=== PATIENT | female | born 1995 | race Caucasian/White ===

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

== ENCOUNTER 2018-08-30 08:40 | Emergency (ER) | payer SELFPAY ==
[2018-08-30] MEDS ORDERED: HYDROcodone/Acetaminophen 5/325 mg Tablet ONE (10:23)
[2018-08-30] MEDS ORDERED: Dexamethasone 4 MG TAB ONE (10:24)
[2018-08-30] MEDS ORDERED: Benzonatate 100 MG CAP ONE (10:24)
[2018-08-30] MEDS ORDERED: Azithromycin 250 MG TAB ONE (10:24)
== END 2018-08-30 10:35 | disposition home or self-care (01) ==
LOC: MADERS 08:40
DX: J18.9 Pneumonia, unspecified organism (principal); J45.909 Unspecified asthma, uncomplicated; F41.9 Anxiety disorder, unspecified; Z79.899 Other long term (current) drug therapy
CPT/HCPCS: 87081; 87430; 87804; 99283; J8540